=== PATIENT | male | born 1950 | race Caucasian/White ===

== ENCOUNTER 2017-11-15 13:31 | Inpatient (IN) | payer MEDICARE, OTHER ==
[~2017-11-15] VITALS: Ht 172.7 cm; Wt 72.6 kg
[2017-11-15] MEDS ORDERED: LEVOFLOXACIN 500 MG/D5W 100ML PIGGYBACK IV ONE (13:45)
[2017-11-15] MEDS ORDERED: METRONIDAZOLE 500 MG/NS 100ML 100 ML IV ONE ×2 (13:45→14:28)
[2017-11-15] MEDS ORDERED: RISP2TAB23 PO (14:00)
[2017-11-15] MEDS ORDERED: SIMV20TA6 PO (14:00)
[2017-11-15] MEDS ORDERED: MULT1TAB73 PO (14:00)
[2017-11-15] MEDS ORDERED: LEVO75TA7 PO (14:00)
[2017-11-15] MEDS ORDERED: LORA0.5T PO (14:00)
[2017-11-15] MEDS ORDERED: OMEP40CA37 PO (14:00)
[2017-11-15] MEDS ORDERED: ACET-2067 PO (14:00)
[2017-11-15] MEDS ORDERED: ENAL2.5T PO (14:00)
[2017-11-15] MEDS ORDERED: LOPE2CAP PO (14:00)
[2017-11-15] MEDS ORDERED: FLUO-119 PO (14:00)
[2017-11-15] MEDS ORDERED: LEVOFLOXACIN 500 MG/D5W 100 ML ONE (14:28)
[2017-11-15 14:49] LABS: BASOPHILS % (AUTO) 0.5 % (0.0-2.0); EOSINOPHILS # (AUTO) 0.1 K/uL (0.0-0.7); EOSINOPHILS % (AUTO) 0.9 % (0.0-7.0); HEMATOCRIT 44.8 % (36.7-47.1); HEMOGLOBIN 15.3 g/dL (12.5-16.3); LYMPHOCYTES # (AUTO) 1.6 K/uL (20.0-40.0); LYMPHOCYTES % (AUTO) 22.4 % (20.5-51.5); MEAN CORPUSCULAR HEMOGLOBIN 31.8 uug (23.8-33.4); MEAN CORPUSCULAR HGB CONC 34 g/dL (32.5-36.3); MEAN CORPUSCULAR VOLUME 93.2 fL (73.0-96.2); MONOCYTES # (AUTO) 0.5 K/uL (2.0-10.0); MONOCYTES % (AUTO) 7.6 % (0.0-11.0); NEUTROPHILS # (AUTO) 4.9 K/uL (1.8-8.9); NEUTROPHILS % (AUTO) 68.6 % (38.5-71.5); PLATELET COUNT (AUTO) 139 K/uL (152-348); RED BLOOD CELL COUNT(AUTO) 4.81 MIL/uL (4.06-5.63); WHITE BLOOD COUNT (AUTO) 7.1 K/uL (3.6-10.2)
[2017-11-15 14:53] LABS: POTASSIUM 3.9 mmol/L (3.5-5.1)
[2017-11-15 15:00] LABS: BILIRUBIN,DIRECT 0.3 mg/dL (0.0-0.2); BILIRUBIN,TOTAL 0.8 mg/dL (0.2-1.0); TOTAL PROTEIN, SERUM 7.4 g/dL (6.4-8.2)
[2017-11-15] MEDS ORDERED: ACETAMINOPHEN 325 MG TABLET PO ONE (15:15)
[2017-11-15] MEDS ORDERED: ACETAMINOPHEN ES 500 MG TABLET ONE (15:18)
--- NOTE | 2017-11-15 19:46 | NUR ---
3rd call placed to [facility] Neph[facility], Dr. Morris has been paged.
--- NOTE | 2017-11-15 20:23 | NUR ---
Pt. admitted to TELE, under care of Yusef Covarrubias [facility]ongs List completed
--- NOTE | 2017-11-15 20:30 | NUR ---
Received pt to TELE floor. A&O x 3. No acute distress noted. Complain of abdominal pain upon palpation, but not in severe pain and not requesting pain medication. No skin issues noted except for old, healed surgical scar to midline abdomen. Pt just wants to sleep at this time.
[2017-11-15 21:15] VITALS: BP 143/78
[2017-11-15] MEDS ORDERED: ONDANSETRON 4 MG/2 ML VIAL IV PRN (21:15)
[2017-11-15] MEDS ORDERED: MVI ADULT 10 ML VIAL=1 AMP 10 ML, THIAMINE HCL INJ 100 MG, FOLIC ACID 1 MG, MAGNESIUM S... IV PRN ×5 (21:15)
[2017-11-15] MEDS: IV D5/ 0.9% NACL 1,000 ML IV PRN (22:06)
--- NOTE | 2017-11-16 | NUR ---
Pt in a deep sleep. Hard to wake up to take vital signs. No distress noted. Vital signs stable.
[2017-11-16 00:23] VITALS: BP 133/73
[2017-11-16 04:32] VITALS: BP 129/71
--- NOTE | 2017-11-16 06:21 | NUR ---
Pt slept through the night. Difficult to arouse. No s/s of distress or pain noted. Tele is normal sinus rhythm. Tolerating IV fluids well.
[2017-11-16 06:42] LABS: BASOPHILS % (AUTO) 0.4 % (0.0-2.0); EOSINOPHILS # (AUTO) 0.1 K/uL (0.0-0.7); EOSINOPHILS % (AUTO) 2.5 % (0.0-7.0); HEMATOCRIT 40.3 % (36.7-47.1); HEMOGLOBIN 13.8 g/dL (12.5-16.3); LYMPHOCYTES # (AUTO) 1.3 K/uL (20.0-40.0); LYMPHOCYTES % (AUTO) 23.2 % (20.5-51.5); MEAN CORPUSCULAR HEMOGLOBIN 31.9 uug (23.8-33.4); MEAN CORPUSCULAR HGB CONC 34 g/dL (32.5-36.3); MEAN CORPUSCULAR VOLUME 92.9 fL (73.0-96.2); MONOCYTES # (AUTO) 0.6 K/uL (2.0-10.0); MONOCYTES % (AUTO) 11.3 % (0.0-11.0); NEUTROPHILS # (AUTO) 3.5 K/uL (1.8-8.9); NEUTROPHILS % (AUTO) 62.6 % (38.5-71.5); PLATELET COUNT (AUTO) 183 K/uL (152-348); RED BLOOD CELL COUNT(AUTO) 4.34 MIL/uL (4.06-5.63); WHITE BLOOD COUNT (AUTO) 5.5 K/uL (3.6-10.2)
[2017-11-16 06:49] LABS: CREATININE 0.9 mg/dL (0.6-1.3); POTASSIUM 3.7 mmol/L (3.5-5.1)
[2017-11-16] MEDS ORDERED: MISCELLANEOUS MED XX PRN (07:30)
[2017-11-16] MEDS ORDERED: LOPERAMIDE HCL 2 MG CAPSULE PO PRN (07:30)
--- NOTE | 2017-11-16 07:30 | NUR ---
Report received from night RN. Patient is resting in bed, in no distress. Instructed patient to use call light when assistance is needed. Patient verbalized understanding. Safety measures in place, bed alarm on.
[2017-11-16] MEDS: FLUOXETINE HCL 10 MG CAPSULE PO SCH (08:13)
[2017-11-16] MEDS: PANTOPRAZOLE SODIUM 40 MG TABLET.DR PO SCH (08:13)
[2017-11-16] MEDS: MULTIVITAMINS,THERAPEUTIC TABLET PO SCH (08:13)
[2017-11-16] MEDS: LORAZEPAM 0.5 MG TABLET PO PRN ×3 (08:20→16:32)
[2017-11-16] MEDS ORDERED: ENALAPRIL 2.5 MG TABLET PO SCH (09:00)
[2017-11-16] MEDS: LEVOTHYROXINE SODIUM 75 MCG TABLET PO SCH (10:14)
[2017-11-16 11:40] VITALS: BP 141/69
[2017-11-16] MEDS: IV D5/ 0.9% NACL 1,000 ML IV PRN (14:03)
[2017-11-16 16:02] VITALS: BP 144/72
[2017-11-16] MEDS: ACETAMINOPHEN 325 MG TABLET PO PRN (16:32)
[2017-11-16] MEDS: risperiDONE 2 MG TABLET PO SCH (18:09)
--- NOTE | 2017-11-16 18:28 | NUR ---
Patient intermittently sleeping throughout the shift, easily arousable. Patient compliant with medications. IVF running, no infiltration noted. Patient c/o of slight generalized discomfort, medicated as ordered.
--- NOTE | 2017-11-16 19:25 | NUR ---
RECEIVED PT ALERT, AWAKE, ORIENTEDX3. PT SHOWS NO SIGNS OF DISTRESS. IV INTACT AND PATENT. ADVISE PT TO CALL ME IF HE WILL GO TO THE RESTROOM. PT AWARE AND UNDERSTAND. BED ALARM ON AND IN LOW POSITION. WILL CONTINUE TO MONITOR.
[2017-11-16 20:24] VITALS: BP 142/69
[2017-11-16] MEDS: SIMVASTATIN 20 MG TABLET PO SCH (21:19)
[2017-11-17] MEDS: IV D5/ 0.9% NACL 1,000 ML IV PRN (01:57)
[2017-11-17 05:26] VITALS: BP 153/81
--- NOTE | 2017-11-17 05:44 | NUR ---
PT SLEPT THROUGHOUT THE SHIFT. PT SHOWS NO SIGNS OF DISTRESS. PT IV INTACT. PT VITALS SIGNS STABLE. PT TOLERATE ROOM AIR. . PRESCRIBED MEDICATION GIVEN. PT ROLERATED IT WELL. CALL LIGHT WITHIN REACH. BED ALARM ON AND IN LOW POSITION. SAFETY AND COMFORT PROVIDED. WILL ENDORSE TO DAYSHIFT NURSE.
[2017-11-17] MEDS: LEVOTHYROXINE SODIUM 75 MCG TABLET PO SCH (06:07)
[2017-11-17] MEDS: PANTOPRAZOLE SODIUM 40 MG TABLET.DR PO SCH (06:07)
[2017-11-17] MEDS ORDERED: ENALAPRIL 2.5 MG TABLET PO SCH (09:00)
[2017-11-17] MEDS: ACETAMINOPHEN 325 MG TABLET PO PRN ×3 (09:09→20:43)
[2017-11-17] MEDS: FLUOXETINE HCL 10 MG CAPSULE PO SCH (09:09)
[2017-11-17] MEDS: ENALAPRIL 5 MG TABLET PO SCH (09:10)
[2017-11-17] MEDS: MULTIVITAMINS,THERAPEUTIC TABLET PO SCH (09:10)
[2017-11-17] MEDS: LORAZEPAM 0.5 MG TABLET PO PRN ×2 (09:10→17:06)
[2017-11-17 11:48] VITALS: BP 153/80
[2017-11-17 15:49] VITALS: BP 115/67
[2017-11-17 16:10] LABS: *BILIRUBIN,URIN NEGATIVE (NEGATIVE); *BLOOD, URINE NEGATIVE (NEGATIVE); *CLARITY,URINE CLEAR (CLEAR); *COLOR,URINE YELLOW (YELLOW); *KETONES,URINE NEGATIVE (NEGATIVE); *PROTEIN,URINE NEGATIVE (NEGATIVE); LEUKOCYTE ESTERASE ,URINE NEGATIVE (NEGATIVE); NITRITE, URINE NEGATIVE (NEGATIVE); UGLUCOSE NEGATIVE (NEGATIVE)
[2017-11-17] MEDS: risperiDONE 2 MG TABLET PO SCH (17:05)
[2017-11-17 17:12] LABS: RBC,URINE 0-3 /HPF (0-3); SQUAMOUS EPITHELIAL CELL,UR FEW /HPF (NONE SEEN); WBC,URINE 0-3 /HPF (0-3)
--- NOTE | 2017-11-17 18:00 | NUR ---
Patient resting in bed, in no distress, no SOB. Patient c/o of headache and slight abdominal pain, pain management as ordered. IVF infusing, no infiltration noted. Safety measures in place.
[2017-11-17 20:00] VITALS: BP 151/77
[2017-11-17] MEDS: SIMVASTATIN 20 MG TABLET PO SCH (20:43)
--- NOTE | 2017-11-18 00:01 | NUR ---
Pt asleep at this time. No s/s distress noted. Administered only Tylenol earlier in the evening for moderate abdominal pain. No nausea or vomiting. All needs attended to. Call light within reach.
[2017-11-18] MEDS: LORAZEPAM 0.5 MG TABLET PO PRN ×3 (01:34→16:40)
[2017-11-18 04:00] VITALS: BP 154/82
--- NOTE | 2017-11-18 05:47 | NUR ---
Pt slept well through the night. Denies abdominal pain or diarrhea. Pt requested only PRN Ativan last night. Tolerating IV fluids well.
[2017-11-18] MEDS: LEVOTHYROXINE SODIUM 75 MCG TABLET PO SCH (06:23)
[2017-11-18] MEDS: PANTOPRAZOLE SODIUM 40 MG TABLET.DR PO SCH (06:23)
--- NOTE | 2017-11-18 07:30 | NUR ---
Sleeping. No IV access.
[2017-11-18] MEDS: FLUOXETINE HCL 10 MG CAPSULE PO SCH (09:33)
[2017-11-18] MEDS: MULTIVITAMINS,THERAPEUTIC TABLET PO SCH (09:34)
[2017-11-18] MEDS: ACETAMINOPHEN 325 MG TABLET PO PRN ×2 (09:34→16:40)
[2017-11-18] MEDS: ENALAPRIL 5 MG TABLET PO SCH (09:34)
--- NOTE | 2017-11-18 09:43 | NUR ---
Complaining of abdominal pain, scale 4/10, requested Tylenol given with anxiety, Ativan po given
[2017-11-18 11:43] VITALS: BP 158/80
[2017-11-18] MEDS ORDERED: ENAL5TAB PO (11:52)
[2017-11-18] MEDS ORDERED: PANT40TA2 PO (11:52)
[2017-11-18 15:35] VITALS: BP 147/82
--- NOTE | 2017-11-18 17:20 | NUR ---
With discharge order to SNF, facilitated to [facility]. Report given to Anjelica. Saline lock removed. Discharge instruction given to patient, verbalized understanding.
[2017-11-18] MEDS: risperiDONE 2 MG TABLET PO SCH (17:27)
--- NOTE | 2017-11-18 17:50 | NUR ---
Discharged per gurney/ambulance in fair condition, not in distress, afebrile.
== END 2017-11-18 17:25 | DRG 392 ==
LOC: ER 13:31 → TELE 20:11 → MED 11-16 17:45
PROVIDERS: ADMIT Internal Medicine Nephrology; ATTEND Internal Medicine
DX: R10.9 Unspecified abdominal pain (principal); I31.3 Pericardial effusion (noninflammatory); F20.9 Schizophrenia, unspecified; R19.7 Diarrhea, unspecified; E03.9 Hypothyroidism, unspecified; F32.9 Major depressive disorder, single episode, unspecified; Z90.49 Acquired absence of other specified parts of digestive tract; Z87.11 Personal history of peptic ulcer disease; Z79.899 Other long term (current) drug therapy; B19.20 Unspecified viral hepatitis C without hepatic coma; F41.9 Anxiety disorder, unspecified; I10 Essential (primary) hypertension; R53.1 Weakness; R63.4 Abnormal weight loss
CPT/HCPCS: 36415; 70030-TC; 71045; 83605; 83690; 84443; 85025; 85730; 87040; 87086; 93005; A4663; A9150; J1956; J3411; J3475; J3490; J7030; J7042